=== PATIENT | female | born 1980 | race Caucasian/White ===

== ENCOUNTER 2017-04-19 20:06 | Emergency (ER) | payer SELFPAY ==
[~2017-04-19] VITALS: Ht 160 cm; Wt 65.6 kg
[~2017-04-19 20:06] MED LIST: CALC0.5C PO; LEVO125T PO; NO MEDS PER PT; OXYC1TAB7 PO
[2017-04-19 20:13] VITALS: BP 94/69
== END 2017-04-19 20:46 | disposition home or self-care (01) ==
LOC: ED 20:40
DX: Z76.0 Encounter for issue of repeat prescription (principal); E89.0 Postprocedural hypothyroidism
CPT/HCPCS: 99283

== ENCOUNTER 2017-05-12 21:53 | Emergency (ER) | payer SELFPAY ==
[~2017-05-12] VITALS: Ht 160 cm; Wt 64.2 kg
[2017-05-12 21:54] VITALS: BP 111/75
== END 2017-05-12 22:45 | disposition home or self-care (01) ==
LOC: ED 22:39
DX: Z76.0 Encounter for issue of repeat prescription (principal); L20.9 Atopic dermatitis, unspecified; F17.200 Nicotine dependence, unspecified, uncomplicated; E03.9 Hypothyroidism, unspecified
CPT/HCPCS: 99283

== ENCOUNTER 2017-05-18 16:27 | Emergency (ER) | payer MEDICAID ==
[~2017-05-18] VITALS: Ht 160 cm; Wt 65.0 kg
[2017-05-18] MEDS ORDERED: PHENAZOPYRIDINE 200 MG TABLET PO ONE (17:00)
[2017-05-18] MEDS ORDERED: PHENAZOPYRIDINE 200 MG TABLET ONE (17:14)
[2017-05-18 19:27] VITALS: BP 110/58
== END 2017-05-18 19:29 | disposition home or self-care (01) ==
LOC: ED 16:53
DX: N30.01 Acute cystitis with hematuria (principal); L20.84 Intrinsic (allergic) eczema
CPT/HCPCS: 36415; 81001; 84703; 87086; 99284

== ENCOUNTER 2017-05-21 14:56 | Emergency (ER) | payer MEDICAID ==
[~2017-05-21] VITALS: Ht 160 cm; Wt 65.5 kg
[2017-05-21] MEDS ORDERED: DEXAMETHASONE 4 MG TABLET ONE (15:48)
[2017-05-21] MEDS ORDERED: FAMOTIDINE 20 MG TABLET ONE (15:48)
[2017-05-21] MEDS ORDERED: DIPHENHYDRAMINE 50 MG CAPSULE ONE (15:48)
[2017-05-21] MEDS ORDERED: FAMOTIDINE 20 MG TABLET PO ONE (16:00)
[2017-05-21] MEDS ORDERED: DEXAMETHASONE 4 MG TABLET PO ONE (16:00)
[2017-05-21] MEDS ORDERED: DIPHENHYDRAMINE 25 MG CAPSULE PO ONE (16:00)
[2017-05-21 17:13] VITALS: BP 110/79
== END 2017-05-21 17:20 | disposition home or self-care (01) ==
LOC: ED 16:03
DX: R21 Rash and other nonspecific skin eruption (principal); F17.200 Nicotine dependence, unspecified, uncomplicated; E03.9 Hypothyroidism, unspecified
CPT/HCPCS: 99284; Q0163